=== PATIENT | male | born 1945 | race Caucasian/White ===

== ENCOUNTER → 2023-11-05 10:32 | Outpatient (REF) | payer MEDICARE, OTHER, SELFPAY ==
[2023-11-05 12:02] LABS: Blood Urea Nitrogen 18 mg/dl (9-20); Calcium 9.4 mg/dl (8.4-10.2); Carbon Dioxide 30 mmol/L (22-30); Chloride 99 mmol/L (98-107); Glucose 94 mg/dl (70-99); Sodium 137 mmol/L (135-145); eGFR > 60.00
== END ==
LOC: REG 10:32
PROVIDERS: ATTENDING PHYSICIAN Internal Medicine Interventional Cardiology; FAMILY PHYSICIAN Family Medicine
DX: I48.91 Unspecified atrial fibrillation (principal); E66.01 Morbid (severe) obesity due to excess calories; G89.29 Other chronic pain
CPT/HCPCS: 36415; 80048; 83735

== ENCOUNTER → 2023-11-06 08:02 | Outpatient (REF) | payer MEDICARE, OTHER, SELFPAY | LOC: DHCBC/DCA 08:02 | PROVIDERS: ATTENDING PHYSICIAN Internal Medicine Interventional Cardiology; FAMILY PHYSICIAN Family Medicine | DX: I48.91 Unspecified atrial fibrillation (principal); R94.31 Abnormal electrocardiogram [ECG] [EKG] | CPT/HCPCS: 78452; 93017; A9500; J2785 ==

== ENCOUNTER → 2024-02-09 07:50 | Outpatient (REF) | payer MEDICARE, OTHER, SELFPAY | LOC: MRI 07:50 | PROVIDERS: ATTENDING PHYSICIAN Orthopaedic Surgery; FAMILY PHYSICIAN Family Medicine | DX: M25.561 Pain in right knee (principal) | CPT/HCPCS: 73721 ==

== ENCOUNTER → 2024-04-20 12:19 | Outpatient (REF) | payer MEDICARE, OTHER, SELFPAY | LOC: RCS 12:19 | PROVIDERS: ATTENDING PHYSICIAN Internal Medicine Interventional Cardiology; FAMILY PHYSICIAN Family Medicine | DX: Z01.818 Encounter for other preprocedural examination (principal); I42.8 Other cardiomyopathies; I35.0 Nonrheumatic aortic (valve) stenosis | CPT/HCPCS: 93306; Q9950 ==

== ENCOUNTER 2024-04-29 06:13 | Inpatient (IN) | payer MEDICARE, OTHER, SELFPAY ==
--- NOTE | 2024-03-25 10:46 | CM ---
Patient is scheduled for an elective R TKR on 04/29/24. Spoke with patient prior to surgery. Patient had a R THR at in August 2023. Reintroduced role of Orthopedic Navigator. Patient reports that he lives with his in a two story home. There
are three steps to enter and a flight of steps to the second floor. He currently functions independently. He uses a cane on uneven surfaces. He also has a rolling walker, raised toilet seat and hip kit. He has never had VN services. PCP is Dr. Hussein
Kishore.
Discussed orthopedic program and post surgical plans. Reviewed anticipated length of stay and that goal is for him to return home at discharge. Also reviewed outpatient PT. Patient is in agreement with tentative plan and will go directly to
outpatient PT at [facility]. He will have support from his when he goes home.
Patient will complete online education.
Plan: Orthopedic Navigator will remain available to assist with the care of patient and will reassess discharge needs after surgery.
[2024-04-06 12:11] VITALS: BMI 41.7
[2024-04-06 14:24] LABS: Hematocrit 45.2 % (39.0-52.0); Hemoglobin 15.8 g/dL (13.0-18.0); Mean Corpuscular Hgb 32.2 pg (27.0-31.0); Mean Corpuscular Volume 92.2 fL (80.0-94.0); Mean Platelet Volume 10.5 fL (7.4-10.4); Platelet Count 168 10^3/uL (130-400); Red Cell Dist. Width 12.2 % (11.5-14.5); White Blood Cell Count 7.2 10^3/uL (4.8-10.8)
[2024-04-06 14:49] LABS: ALT (SGPT) 19 U/L (0-50); AST (SGOT) 26 U/L (17-59); Albumin 4.6 g/dl (3.5-5.0); Alkaline Phosphatase 70 U/L (38-126); Blood Urea Nitrogen 17 mg/dl (9-20); Calcium 9.2 mg/dl (8.4-10.2); Carbon Dioxide 31 mmol/L (22-30); Chloride 100 mmol/L (98-107); Estimated Creatinine Clearance 83 ml/min; Glucose 87 mg/dl (70-99); Potassium 4.2 mmol/L (3.5-5.1); Sodium 139 mmol/L (135-145); Total Protein 6.6 g/dl (6.3-8.2); eGFR > 60.00
[2024-04-07 08:46] LABS: Glycohemoglobin (HgbA1c) 5.3 % (4.0-5.6)
[2024-04-29] VITALS (10 sets, daily range): BP systolic 112–173; BP diastolic 49–103; PULSE 76; O2SAT 95; BMI 41.7
[2024-04-29] MEDS: NORMOSOL-R 1000 IV ×2 (06:40→09:38)
[2024-04-29] MEDS: TYLENOL 650 MG PO ×4 (06:54→21:08)
[2024-04-29] MEDS: CELEBREX 200 MG PO (06:54)
--- NOTE | 2024-04-29 07:52 | W.DS.TRANS ---
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
-
Discharge Instructions:
Discharge Diagnosis/Procedures R RODDY Barrett 04/29/24
Diet As tolerated
Activity With Walker
Driving Restrictions No driving
Bathing Restrictions OK to Shower
Other Services PT
Instructions:
Stand-Alone Forms:
Changes to Home Medications: Yes
Discharge Medications:
DC Medications w/original date entered in [facility]
atorvastatin 40 mg tablet (Lipitor) 40 mg PO DAILY High Cholesterol 05/11/21
tamsulosin 0.4 mg capsule (Flomax) 0.4 mg PO DAILY Urinary Issue 05/11/21
melatonin 10 mg tablet 10 mg PO HS PRN Insomnia 07/15/23
metoprolol succinate 25 mg tablet,extended release 24 hr (Toprol XL) 25 mg PO DAILY Heart Failure 07/22/23
losartan 50 mg tablet 50 mg PO HS 04/20/24
Saccharomyces boulardii 250 mg capsule (Florastor) 250 mg PO BID #1 cap 04/29/24
acetaminophen 500 mg tablet 1,000 mg (2 x 500 mg) PO QID pain #60 tabs 04/29/24
apixaban 5 mg tablet (Eliquis) 2.5 mg (1/2 x 5 mg) PO BID Blood clot prevention/tx/afib #60 tabs 04/29/24
cefadroxil 500 mg capsule 500 mg PO BID infection prevention #14 caps 04/29/24
dexamethasone 4 mg tablet 4 mg PO BID inflammation #6 tabs 04/29/24
docusate sodium 100 mg capsule (Colace) 100 mg PO BID stool softner #1 cap 04/29/24
famotidine 20 mg tablet 20 mg PO HS GI prophylaxis #30 tabs 04/29/24
furosemide 40 mg tablet 40 mg PO DAILY 04/29/24
gabapentin 300 mg capsule 300 mg PO HS sleep/pain #10 caps 04/29/24
magnesium hydroxide 400 mg/5 mL oral suspension (Milk of Magnesia) 30 ml PO HS PRN Constipation #1 mL 04/29/24
mupirocin 2 % topical ointment applic topical BID 04/29/24
ondansetron 4 mg disintegrating tablet 4 mg PO Q6H PRN n/v #20 tabs 04/29/24
oxycodone 5 mg tablet 5 mg PO Q6H PRN 1 tab moderate pain, 2 tabs severe pain #30 tabs 04/29/24
sennosides 8.6 mg tablet (Senokot) 17.2 mg (2 x 8.6 mg) PO BID laxative #2 tabs 04/29/24
Home Medication Changes
apixaban 5 mg tablet (Eliquis) 2.5 mg (1/2 x 5 mg) PO BID Blood clot prevention/tx/afib #60 tabs 04/29/24
cefadroxil 500 mg capsule 500 mg PO BID infection prevention #14 caps 04/29/24
dexamethasone 4 mg tablet 4 mg PO BID inflammation #6 tabs 04/29/24
famotidine 20 mg tablet 20 mg PO HS GI prophylaxis #30 tabs 04/29/24
gabapentin 300 mg capsule 300 mg PO HS sleep/pain #10 caps 04/29/24
magnesium hydroxide 400 mg/5 mL oral suspension (Milk of Magnesia) 30 ml PO HS PRN Constipation #1 mL 04/29/24
mupirocin 2 % topical ointment applic topical BID 04/29/24
ondansetron 4 mg disintegrating tablet 4 mg PO Q6H PRN n/v #20 tabs 04/29/24
oxycodone 5 mg tablet 5 mg PO Q6H PRN 1 tab moderate pain, 2 tabs severe pain #30 tabs 04/29/24
Pending Results: No
[2024-04-29] MEDS: ROXICODONE 5 MG PO ×2 (09:40→21:24)
--- NOTE | 2024-04-29 10:15 | SUR.OPER ---
Pt received from the PACU via bed. Transport was w/o incident. pt is AAOx3, HRR, w/ murmur, in the 50's. Lungs are clear, pt denies nausea and pain at this time. VSS, Bp high at 173/75 after settling into new room, will recheck and treat as
ordered/needed. Right knee with primaseal dressing c/d/i, no drainage noted. Pt instructed on plan of care. Pt verbalized understanding of instructions. Call dietz is within reach.
[2024-04-29] MEDS: FLOMAX 0.4 MG PO (11:15)
[2024-04-29] MEDS: TYLENOL PO (11:19)
[2024-04-29] MEDS: TOPROL XL 25 MG PO (11:20)
[2024-04-29] MEDS: ZOFRAN 4 MG IV (14:28)
[2024-04-29] MEDS: CYKLOKAPRON 1300 MG PO (15:37)
[2024-04-29] MEDS: ANCEF 5 IV (15:38)
[2024-04-29] MEDS: LIPITOR 40 MG PO (18:37)
[2024-04-29] MEDS: ELIQUIS 2.5 MG PO (21:07)
[2024-04-29] MEDS: SENOKOT 17.2 MG PO (21:07)
[2024-04-29] MEDS: DECADRON 4 MG PO (21:07)
[2024-04-29] MEDS: COLACE 100 MG PO (21:08)
[2024-04-29] MEDS: BACTROBAN 2% OINTMENT 1 APPLIC NASAL (21:08)
[2024-04-29] MEDS: NEURONTIN 300 MG PO (21:22)
[2024-04-30] MEDS: ANCEF 5 IV (00:30)
[2024-04-30] MEDS: TYLENOL 650 MG PO ×3 (00:30→08:13)
[2024-04-30 03:16] VITALS: BP 117/70
[2024-04-30 07:00] VITALS: BP 110/64
[2024-04-30] MEDS: BACTROBAN 2% OINTMENT 1 APPLIC NASAL (08:10)
[2024-04-30] MEDS: COLACE 100 MG PO (08:11)
[2024-04-30] MEDS: DECADRON 4 MG PO (08:11)
[2024-04-30] MEDS: FLOMAX 0.4 MG PO (08:12)
[2024-04-30] MEDS: ELIQUIS 2.5 MG PO (08:12)
[2024-04-30] MEDS: SENOKOT 17.2 MG PO (08:12)
[2024-04-30] MEDS: TOPROL XL 25 MG PO (08:13)
--- NOTE | 2024-04-30 08:17 | CM ---
Reviewed chart and held rounds with PT, OT and nursing. Patient admitted as planned for elective L THR. Met with patient at bedside. Confirmed information previously obtained for assessment. Also discussed discharge plans. The plan is for patient to
return home at discharge. He will have support from his when he goes home. Patient will go directly to outpatient PT and will go to [facility]. He has an appointment scheduled for Saturday, 05/01.
Patient has all needed DME.
He will use [facility] pharmacy if additional discharge prescriptions are needed.
Discharge plans were reviewed with patient's on 04/29.
[2024-04-30] MEDS: ROXICODONE 10 MG PO (08:18)
--- NOTE | 2024-04-30 08:20 | CM ---
Reviewed chart and held rounds with PT, OT and nursing. Patient admitted as planned for elective R TKR. Met with patient at bedside. Confirmed information previously obtained for assessment. Also discussed discharge plans. The plan is for patient to
return home at discharge. He will have support from his when he goes home. Patient will go directly to outpatient PT and will go to [facility]. He has an appointment scheduled for Saturday, 05/01.
Patient has all needed DME.
He will use [facility] pharmacy if additional discharge prescriptions are needed.
Discharge plans were reviewed with patient's on 04/29.
[2024-04-30 11:00] VITALS: BP 124/66
--- NOTE | 2024-04-30 11:42 | W.PN.ORTHO ---
Today's Communication / Plan
-
d/c
Assessment
.
Distal Motor Intact: Yes
Dressing:
Clean, dry and intact.
Assessment:
Afib-stable on tele-continue uninterrupted BB+ Eliquis at modified dose
Incisional bleeding-s/p Tranexamic acid po-additional steri-strips applied by surgical team-light pressure dressing
Plan
.
Surgery / Date: R RODDY Barrett 04/29/24
DVT Prophylaxis: Other (Eliquis)
Activity:
Out of bed.
PT/OT
Discharge Plan: Home w/ Outpatient PT
Subjective
.
.:
Patient resting comfortably.
Vital Signs and Labs
.
Vital Signs and Labs:
Lab Results
04/06/24 12:08
04/06/24 12:08
Temp Pulse Resp BP Pulse Ox
98.1 F 58 14 124/66 93
04/30/24 11:00 04/30/24 11:00 04/30/24 11:00 04/30/24 11:00 04/30/24 11:00
Non-invasive Hgb result: 12.5
Physical Exam
-
HEENT: No pallor, cyanosis, or jaundice. Throat clear.
NECK: Supple. No JVD.
RESPIRATORY: Lungs clear to auscultation.
CVS: S1, S2 normal. RRR.� No murmur, rub or gallop.
ABDOMEN: Soft, non-tender. No distension. BS+/normal.
EXTREMITIES: strength equal, no calf pain with palpation
NEONATAL SURGEON: AOx3. No focal deficits. sugar house supervisor grossly intact
[2024-04-30 13:18] VITALS: BP 147/73; PULSE 60; O2SAT 96
[2024-04-30 13:38] VITALS: BP 144/66; PULSE 60; O2SAT 96
[2024-04-30] MEDS: TYLENOL PO (14:27)
== END 2024-04-30 13:50 | disposition home or self-care (01) | DRG 470 ==
LOC: 2 SOUTH 06:13
PROVIDERS: ADMITTING PHYSICIAN Orthopaedic Surgery; FAMILY PHYSICIAN Family Medicine
PROC: 0SRC0J9 Replacement of Right Knee Joint with Synthetic Substitute, Cemented, Open Approach (ICD-10-PCS; 2024-04-29)
DX: M17.11 Unilateral primary osteoarthritis, right knee (principal); I42.8 Other cardiomyopathies; Z68.41 Body mass index [BMI] 40.0-44.9, adult; I48.0 Paroxysmal atrial fibrillation; I35.0 Nonrheumatic aortic (valve) stenosis; G47.33 Obstructive sleep apnea (adult) (pediatric); I10 Essential (primary) hypertension; E78.00 Pure hypercholesterolemia, unspecified; E66.01 Morbid (severe) obesity due to excess calories; Z79.01 Long term (current) use of anticoagulants; Z79.899 Other long term (current) drug therapy; Z96.641 Presence of right artificial hip joint
CPT/HCPCS: 36415; 73560; 80053; 83036; 85027; 87070; 97110; 97116; 97163; 97166; 97530; C1713; C1776

== ENCOUNTER → 2024-11-02 10:51 | Outpatient (REF) | payer MEDICARE, OTHER, SELFPAY | LOC: HWRAD 10:51 | PROVIDERS: ATTENDING PHYSICIAN Family Medicine | DX: M79.651 Pain in right thigh (principal) | CPT/HCPCS: 73552 ==

== ENCOUNTER → 2024-12-17 11:44 | Outpatient (REF) | payer MEDICARE, OTHER, SELFPAY | LOC: PAVMRI 11:44 | PROVIDERS: ATTENDING PHYSICIAN Family Medicine | DX: M79.651 Pain in right thigh (principal) | CPT/HCPCS: 73720; A9575 ==

== ENCOUNTER → 2025-08-12 13:29 | Outpatient (REF) | payer MEDICARE, OTHER, SELFPAY ==
--- NOTE | 2025-08-12 14:57 | CARDSERVLU ---
Echocardiogram with Lumason completed after protocol screening completed. Allergies verified.
Patent IV site: _Right forearm 22G PC inserted by IV team____
IV site flushed with 0.9% NaCl pre and post administration.
Diluted bolus method utilized to enhance visualization of ventricular arriaga.
Total volume given: __5__ mL
Patient tolerated all procedures well without complications.
Procedure completed by Echo team, Lumason given by Kasandra Elliott Wood Heel Flap Rubber . Pt offers no complaints.
== END ==
LOC: RCS 13:29
PROVIDERS: ATTENDING PHYSICIAN Internal Medicine Interventional Cardiology; FAMILY PHYSICIAN Family Medicine
DX: I48.0 Paroxysmal atrial fibrillation (principal); I35.0 Nonrheumatic aortic (valve) stenosis
CPT/HCPCS: 93306; Q9950

== ENCOUNTER → 2025-08-18 10:14 | Outpatient (REF) | payer MEDICARE, OTHER, SELFPAY ==
[2025-08-18 11:26] LABS: Hematocrit 51.3 % (39.0-52.0); Hemoglobin 17.8 g/dL (13.0-18.0); Mean Corp Hgb Conc. 34.7 g/dL (33.0-37.0); Mean Corpuscular Volume 93.6 fL (80.0-94.0); Nucleated Red Blood Cells % 0 % (-); Platelet Count 198 10^3/uL (130-400); Red Cell Dist. Width 13.2 % (11.5-14.5)
[2025-08-18 12:00] LABS: Glycohemoglobin (HgbA1c) 5.7 % (4.0-5.9)
[2025-08-18 12:51] LABS: ALT (SGPT) 20 U/L (0-50); AST (SGOT) 21 U/L (17-59); Albumin 4.7 g/dl (3.5-5.0); Alkaline Phosphatase 64 U/L (38-126); Blood Urea Nitrogen 14 mg/dl (9-20); Calcium 9.6 mg/dl (8.4-10.2); Carbon Dioxide 34 mmol/L (22-30); Chloride 100 mmol/L (98-107); Glucose 92 mg/dl (70-99); HDL Cholesterol 55 mg/dl; LDL Cholesterol, Calculated 142 mg/dl; Potassium 4.8 mmol/L (3.5-5.1); Sodium 140 mmol/L (135-145); Total Protein 7.2 g/dl (6.3-8.2); Very Low Density Lipoprotein 15 mg/dl (0-30); eGFR > 60.00
== END ==
LOC: REG 10:14
PROVIDERS: ATTENDING PHYSICIAN Internal Medicine Interventional Cardiology; FAMILY PHYSICIAN Family Medicine
DX: I48.0 Paroxysmal atrial fibrillation (principal); I35.0 Nonrheumatic aortic (valve) stenosis; I10 Essential (primary) hypertension; E78.2 Mixed hyperlipidemia; G47.33 Obstructive sleep apnea (adult) (pediatric)
CPT/HCPCS: 36415; 80053; 80061; 83036; 84443; 85025

== ENCOUNTER 2025-09-06 07:24 | Day surgery (SDC) | payer MEDICARE, OTHER, SELFPAY ==
[2025-09-06] VITALS (12 sets, daily range): BP systolic 112–173; BP diastolic 55–145; BMI 45.6
--- NOTE | 2025-09-06 07:56 | ITS.CL.CATH ---
Market Analyst - Catheterization
Cardiac Catheterization
Procedure Report:
LEFT AND RIGHT HEART CATHETERIZATION
Date of Procedure: September 06, 2025
Referring: Washington Walters.
PROCEDURES:
1. Left heart catheterization, coronary angiogram.
2. Moderate sedation.
3. Right heart catheterization.
INDICATION: Concern for severe low-flow low gradient aortic stenosis and recently reduced LV function with LVEF of 40-45
ACCESS: Right radial artery, 6Fr. sheath, under US guidance.
Right brachial vein, 6 Georgian sheath, under ultrasound.
HEMODYNAMICS : (mmHg)
RA (m) : 14
RV (s/d,m) : 53/9, 16
PA (s/d, m) : 56/26, 30
PCWP (m) : 33
PA saturation: 71.5%on room air
AO saturation: 95.3% on room air
RA saturation: 69.1% on room air
Cardiac Output : 5.00 L/min
Cardiac Index : 2.11 L/min/m-2
Systemic vascular resistance: 1311 dsc^(-5)
Pulmonary vascular resistance: 2.11 bass unit
AO (s/d) : 141/73
LVEDP : 25
Mean Aortic gradient: 35mmHg, SONU 0.93cm2
CORONARY FINDINGS
Dominance: Right
Left Main Trunk (LMT): The left main gives off the LAD and LCx and is free of angiographic disease.
Left Anterior Descending Artery (LAD): The LAD is a large caliber vessel a small to medium caliber first major diagonal and a large caliber second diagonal. The ostial to proximal D1 has eccentric 70-80% stenosis. The proximal D2 has 50% stenosis.
Left Circumflex Artery (LCx): The large LCx gives off a high rising moderate caliber first obtuse marginal. The ostial LCx has an eccentric 70% stenosis.
Right Coronary Artery (RCA): Very large caliber dominant vessel that gives rise to the posterior descending artery (RPDA) and postero-lateral ventricular (RPLV) branches distally. Ostial to proximal RCA has heavily calcified 70 to 80% stenosis.
The remainder of the vessel is very ectatic/aneurysmal with moderate tortuosity. Ostial to proximal RPDA has 40 to 50% stenosis.
HEMODYNAMIC ASSESSMENT OF THE MID LAD WITH A VOLCANO OMNI WIRE: The origin of the left coronary artery was cannulated with a 6 Fr EBU 3.5 guide catheter. Intravenous heparin was administered and the ACT was followed during the procedure. Two
hundred micrograms of intracoronary nitroglycerin was given through the guide catheter. A [place] Omni wire was advanced to the guide catheter tip and normalized just outside the guide catheter. The Omni wire was then carefully manipulated across
the stenosis in the mid LAD with the iFR above the ischemic threshold serially measuring 0.92, 0.92, 0.93. The Omni wire was then pulled back to the guide catheter where the Pd/Pa measured 1.0 confirming no baseline drift in pressure readings. We
attempted RCA IFR using a 6 Georgian JR4 guide however despite multiple attempts we continue to have significant drift in the Omni wire despite normalizing multiple times and therefore we aborted and could not rely on any IFR information.
Angiographically it appears to be a heavily calcified obstructive lesion in the ostial to proximal RCA
SEDATION: 47 minutes of procedural sedation was utilized. IV Midazolam and IV Fentanyl were administered. An independent medical artist was present to assist with and help manage the patient's level of consciousness and physiologic status.
RADIATION SUMMARY: Fluoro Time (min): 13.1, Dose (mGy): 702, DAP (Gy.cm2) : 55.7
Closure Device: There were no immediate intra-procedural complications. The sheath was pulled in the slab off mill tender and a vascular-band applied to the right wrist for radial artery hemostasis using the patent hemostasis technique.
CONCLUSIONS
1. Severe ostial to proximal calcified RCA stenosis along with ostial LCx, and D1 disease.
2. Severely calcified aortic valve with invasive mean transaortic gradient of 35 mmHg, aortic valve area of 0.93 cm� consistent with low-flow low gradient severe aortic stenosis.
3. Significantly elevated right and left-sided filling pressures with borderline cardiac index.
RECOMMENDATIONS
1. Wean radial band per protocol. Monitor right hand perfusion and for bleeding from the radial site following removal of the vascular-band following trans-radial access.
2. Continue aggressive medical therapy and risk factor modification for secondary CAD prevention. Optimizing goal-directed medical therapy for new cardiomyopathy.
3. Hydrate with normal saline to mitigate the risk of contrast-induced acute kidney injury.
4. Pursue CTA of chest, abdomen and pelvis with plan to discuss at structural meeting afterwards for consideration of SAVR and CABG with grafts to OM1, RCA and if possible D1 versus TAVR and possible PCI of ostial to proximal RCA.
Greta Velasquez MD, FACC, [facility] [place]
[2025-09-06] MEDS: NSS 396 ML IV (08:18)
[2025-09-06] MEDS: LOW STRENGTH ASPIRIN 81 MG PO (08:22)
--- NOTE | 2025-09-06 12:30 | PTCARENOTE ---
Received patient post R/C. Dual preventive medicine officer of access points completed with Lei Elliott RN. Radial band in place on right wrist. 6 Fr right brachial vein sheath remains in place. Pt is alert and oriented x4. Will remove brachial sheath once patient
is settled. Call dietz within reach. Pt secure on the stretcher; both side rails up.
[2025-09-06 12:55] LABS: ACT-LR - POC 385 Seconds (116-155)
[2025-09-06] MEDS: NSS 1000 IV (13:15)
--- NOTE | 2025-09-06 15:00 | PTCARENOTE ---
patient states [facility] having trouble filling Farxgia and Atorvastatin software test and validation engineer made aware, instructed [facility] to call [facility] in am, Call Doc office if unable to fill scripts in am
--- NOTE | 2025-09-06 15:06 | CONSULT.STRU ---
Consultation
-
Date/Time Consultation Requested: 09/06/2025 1145
Date/Time Consultation Performed: 09/06/2025 1300
Requesting Provider: Dr. Greta Velasquez
Performing Provider: CARINA Velasquez
Reason for Consultation: Aortic stenosis/CAD
Patient History
Physicians
Family Physician: Keenan Novak
Outpatient Legislative Assistant: Greta Velasquez
Primary Legislative Assistant: Greta Velasquez
History of Present Illness
Mr Sena is a 80-year-old gentleman with past medical history of obesity, obstructive sleep apnea(CPAP), hyperlipidemia, hypertension, Osteoarthritis, persistent atrial fibrillation on full anticoagulation with Eliquis.He continues to be limited
because of his orthopedic issues but has noted ongoing MCCONNELL and fatigue. His feels it has become more obvious over the last 6 months. He denies chest pain at rest or with exertion. He denies palpitations, PND, orthopnea. He has IZA and is
compliant with his CPAP. Mild BLE edema, left worse than right with chronic venous stasis changes. No syncope. No LH/dizziness. His echocardiogram on 08/12/2025 was notable for decreased EF of 45%, severe low flow, low gradient with PG/M/35,
SONU 0.86, mild AI, MR, TR. Cardiac cath today with Severe ostial to proximal calcified RCA stenosis along with ostial LCx, and D1 disease. Severely calcified aortic valve with invasive mean transaortic gradient of 35 mmHg, aortic valve area of 0.93
cm� consistent with low-flow low gradient severe aortic stenosis. Significantly elevated right and left-sided filling pressures with borderline cardiac index.
Reviewed with the patient and his the treatment options for his CAD and severe including with TAVR/PCI and CABG/SAVR. Provided with prescription for follow up BMP next week and CT TAVR. Explained the evaluation process including Structural
Heart team discussion prior to making final recommendation for treatment. Allowed for and answered questions.
Past Medical History
Past Medical History: Atrial Fib (persistant, Eliquis), CAD, MCCONNELL, HTN, Hypercholesterolemia, IZA (CPAP), Valvular Disease (severe low flow low gradient , mild AI, mild MR, mild TR) and Other (Chronic Venous Insufficiency)
Past Surgical History
Past Surgical History: Orthopedic (Right ANDRES, Right TKA, Bilateral should replacements, back surgery x2)
Dental History
Dentures
Family History
Mother: at Age
Father: at Age
Social History
Alcohol: Occasional
Drug: None
Tobacco: Non-Smoker
Personal:
Living: With Spouse
Employment: Retired
Allergies
Allergy/AdvReac Type Severity Reaction Status Date / Time
pollen extracts Allergy Seasonal Verified 09/06/25 07:45
Allergy
Home Medications
�Medication �Instructions �Recorded �Confirmed �Type
tamsulosin 0.4 mg capsule (Flomax) 0.4 mg PO DAILY Urinary Issue 05/11/21 09/06/25 History
melatonin 10 mg tablet 10 mg PO HS PRN Insomnia 07/15/23 09/06/25 History
metoprolol succinate 25 mg 25 mg PO DAILY Heart Failure 07/22/23 09/06/25 History
tablet,extended release 24 hr
(Toprol XL)
acetaminophen 500 mg tablet 1,000 mg (2 x 500 mg) PO QID pain 04/29/24 09/06/25 Rx
#60 tabs
gabapentin 300 mg capsule 300 mg PO HS sleep/pain #10 caps 04/29/24 09/06/25 Rx
apixaban 5 mg tablet (Eliquis) 5 mg PO BID Blood clot 09/06/25 09/06/25 History
prevention/tx/afib
atorvastatin 80 mg tablet (Lipitor) 80 mg PO DAILY #30 tabs 09/06/25 Rx
dapagliflozin propanediol 10 mg 10 mg PO DAILY #30 tabs 09/06/25 Rx
tablet (Farxiga)
furosemide 40 mg tablet 40 mg PO BID Fluid 09/06/25 09/06/25 Rx
Retention/Swelling #60 tabs
losartan 25 mg tablet 25 mg PO DAILY #30 tabs 09/06/25 Rx
STS%
STS %: AVR: 2.75%, AVR/CAB.24%
Review of Systems
-
History Source: Patient and Family
General: Reports Fatigue
HEENT: Reports No Symptoms
Respiratory: Reports MCCONNELL and Other (IZA)
Cardiac: Reports Edema; Denies Chest Pain, Palpitations, Nausea or Vomiting
Abdomen/GI: Reports Reflux (occasional, relieved with TUMS); Denies Nausea, Vomiting, Diarrhea or Constipation
: Reports No Symptoms
Musculoskeletal: Reports No Symptoms
Skin: Reports No Symptoms
Neurological: Reports No Symptoms; Denies CVA, TIA or Syncope
Vascular: Reports Other (CVI)
Physical Exam
Vital Signs
Temp 97.1 F 09/06/25 08:10
Pulse 57 09/06/25 14:55
Resp Rate 20 09/06/25 14:55
Blood pressure 122/64 09/06/25 14:55
Blood pressure extremity used: Right upper arm 09/06/25 08:10
Position: Lying 09/06/25 08:10
MAP (cuff-Michaelle Monitor) 78 09/06/25 14:55
SaO2 96 09/06/25 14:55
Oxygen Mode of Delivery Room air 09/06/25 14:20
Can the patient verbally communicate their pain? Yes 09/06/25 14:20
Actual Weight 131.9 kg 09/06/25 07:44
Body Mass Index (BMI) 45.6 09/06/25 07:44
Labs
08/18/2025
H/H: 17.8/51.3
BUN/Creat: 14/0.9
GFR >60
Diagnostic Studies
08/12/2025 Echocardiogram:
SUMMARY
1. Left ventricular hypertrophy. Mildly reduced left ventricular systolic function with estimated LVEF of 45% by visual estimation. Underlying atrial fibrillation and [id number] variability make this assessment somewhat challenging. Diastolic
function is indeterminate.
2. Mildly dilated right ventricle with low normal RV systolic function.
3. Trileaflet calcified aortic valve with reduced leaflet excursion. Severe low-flow low gradient aortic stenosis with peak and mean transaortic gradient of 54 and 35 mmHg. Dimensionless index of 0.2. Stroke-volume index of 32ml/m2. Mild aortic
regurgitation.
4. Trivial pericardial effusion.
5. Compared to prior echocardiogram from April 20, 2024, aortic stenosis is now severe with mildly reduced LV systolic function.

Transthoracic Echo procedure
A complete Transthoracic Echocardiogram was performed utilizing Two-Dimensional evaluation with color flow and spectral Doppler analysis.
PHYSICIAN INTERPRETATION
Left Ventricle:
Lumason intravenous contrast was given for enhanced left ventricular opacification and improved delineation of the left ventricular endocardial borders. There is mild concentric left ventricular hypertrophy. Diastolic function indeterminate.
Right Ventricle:
The right ventricular cavity size cavity is mildly dilated. The right ventricular systolic function is mildly decreased.
Left Atrium:
Indexed left atrial volume is severely abnormal (>48 ml/m2).
Right Atrium:
Right atrial size is normal. The inferior vena cava appears normal.
Interatrial Septum:
The interatrial septum appears normal and intact, with no evidence of interatrial shunting.
Aortic Valve:
Trileaflet calcified aortic valve with reduced leaflet excursion. Severe low-flow low gradient aortic stenosis with peak and mean transaortic gradient of 54 and 35 mmHg. Dimensionless index of 0.2. Stroke-volume index of 32ml/m2. Mild aortic
regurgitation.
Mitral Valve:
Mitral valve opens normally. There is mild thickening of the mitral valve. mild mitral annular calcification. mild mitral valve regurgitation.
Tricuspid Valve:
Tricuspid valve opens normally. Mild tricuspid regurgitation. Estimated pulmonary artery pressure of 40 mmHg assuming a right atrial pressure of 3 mmHg.
Pulmonic Valve:
Pulmonic valve opens normally.
Aorta:
The aortic annulus is mildly dilated. SOV measure 3.8cm.
Pericardium:
Trivial pericardial effusion is present.
09/06/2025 Cardiac Cath:
HEMODYNAMICS : (mmHg)
RA (m) : 14
RV (s/d,m) : 53/9, 16
PA (s/d, m) : 56/26, 30
PCWP (m) : 33
PA saturation: 71.5%on room air
AO saturation: 95.3% on room air
RA saturation: 69.1% on room air
Cardiac Output : 5.00 L/min
Cardiac Index : 2.11 L/min/m-2
Systemic vascular resistance: 1311 dsc^(-5)
Pulmonary vascular resistance: 2.11 bass unit
AO (s/d) : 141/73
LVEDP : 25
Mean Aortic gradient: 35mmHg, SONU 0.93cm2
CORONARY FINDINGS
Dominance: Right
Left Main Trunk (LMT): The left main gives off the LAD and LCx and is free of angiographic disease.
Left Anterior Descending Artery (LAD): The LAD is a large caliber vessel a small to medium caliber first major diagonal and a large caliber second diagonal. The ostial to proximal D1 has eccentric 70-80% stenosis. The proximal D2 has 50% stenosis.
Left Circumflex Artery (LCx): The large LCx gives off a high rising moderate caliber first obtuse marginal. The ostial LCx has an eccentric 70% stenosis.
Right Coronary Artery (RCA): Very large caliber dominant vessel that gives rise to the posterior descending artery (RPDA) and postero-lateral ventricular (RPLV) branches distally. Ostial to proximal RCA has heavily calcified 70 to 80% stenosis.
The remainder of the vessel is very ectatic/aneurysmal with moderate tortuosity. Ostial to proximal RPDA has 40 to 50% stenosis.
HEMODYNAMIC ASSESSMENT OF THE MID LAD WITH A VOLCANO OMNI WIRE: The origin of the left coronary artery was cannulated with a 6 Fr EBU 3.5 guide catheter. Intravenous heparin was administered and the ACT was followed during the procedure. Two
hundred micrograms of intracoronary nitroglycerin was given through the guide catheter. A Path101 Omni wire was advanced to the guide catheter tip and normalized just outside the guide catheter. The Omni wire was then carefully manipulated across
the stenosis in the mid LAD with the iFR above the ischemic threshold serially measuring 0.92, 0.92, 0.93. The Omni wire was then pulled back to the guide catheter where the Pd/Pa measured 1.0 confirming no baseline drift in pressure readings. We
attempted RCA IFR using a 6 Vietnamese JR4 guide however despite multiple attempts we continue to have significant drift in the Omni wire despite normalizing multiple times and therefore we aborted and could not rely on any IFR information.
Angiographically it appears to be a heavily calcified obstructive lesion in the ostial to proximal RCA
CONCLUSIONS
1. Severe ostial to proximal calcified RCA stenosis along with ostial LCx, and D1 disease.
2. Severely calcified aortic valve with invasive mean transaortic gradient of 35 mmHg, aortic valve area of 0.93 cm� consistent with low-flow low gradient severe aortic stenosis.
3. Significantly elevated right and left-sided filling pressures with borderline cardiac index.
RECOMMENDATIONS
1. Wean radial band per protocol. Monitor right hand perfusion and for bleeding from the radial site following removal of the vascular-band following trans-radial access.
2. Continue aggressive medical therapy and risk factor modification for secondary CAD prevention. Optimizing goal-directed medical therapy for new cardiomyopathy.
3. Hydrate with normal saline to mitigate the risk of contrast-induced acute kidney injury.
4. Pursue CTA of chest, abdomen and pelvis with plan to discuss at structural meeting afterwards for consideration of SAVR and CABG with grafts to OM1, RCA and if possible D1 versus TAVR and possible PCI of ostial to proximal RCA.
Exam
General: Well Developed, No Apparent Distress, Comfortable and Other (obese)
HEENT: Normocephalic and Atraumatic
Neck: Trachea Midline
Respiratory: Clear; Negative Wheezes, Crackles or Rhonchi
Cardiac: S1/S2, Irregular Rhythm and Murmur (Grade II/)
GI: Soft, Non Tender, Non Distended and Normal Bowel Sounds
Rectal: Deferred by Provider
Skin: Warm, Dry and Other (chronic venous stasis changes bilateral LE)
Neuro: AO x 3 and Nonfocal/Grossly Intact
Extremities: Lower Level Edema
Psych: Calm
Assessment / Plan
-
Procedure Type:�Isolated AVR
Perioperative Outcome Estimate %
Operative Mortality 2.75%
Morbidity & Mortality 15.2%
Stroke 0.819%
Renal Failure 3.23%
Reoperation 4.51%
Prolonged Ventilation 10.5%
Deep Sternal Wound Infection 0.227%
Long Hospital Stay (>14 days) 6.01%
Short Hospital Stay (<6 days)* 25.3%
Procedure Type:�CABG + AVR
Perioperative Outcome Estimate %
Operative Mortality 7.24%
Morbidity & Mortality 22.7%
Stroke 1.6%
Renal Failure 5.63%
Reoperation 5.59%
Prolonged Ventilation 17.5%
Deep Sternal Wound Infection 0.413%
Long Hospital Stay (>14 days) 13.7%
Short Hospital Stay (<6 days)* 10.4%
Assessment:
Severe low flow, low gradient with multivessel CAD
Plan:
-Continue evaluation as outpatient
-BMP on 09/13/2025 ()
-CT TAVR scan 09/16/2025
-CT surgery consult with Dr. Doss 09/27/2025
-Structural heart team discussion PCI/TAVR vs CABG/SAVR
-Eliquis for a-fib, will need to discuss timing to hold prior to procedure. Will need ASA while off Eliquis if having TAVR.
-Full dentures, no need for dental clearance
-Medication adjustments per cardiology for CAD and elevated filling pressures
Data Reviewed
-
EKG: Report Reviewed by me
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
Echo: Report Reviewed by me, Discussed with Patient and Discussed with Family
Labs: Labs Reviewed by me
Old Records: Reviewed (cardiology office notes)
Total Time Spent with Patient (in minutes): 45
== END 2025-09-06 16:22 | disposition home or self-care (01) ==
LOC: CATH 07:24
PROVIDERS: ATTENDING PHYSICIAN Internal Medicine Interventional Cardiology; FAMILY PHYSICIAN Family Medicine
DX: I25.10 Atherosclerotic heart disease of native coronary artery without angina pectoris (principal); E66.9 Obesity, unspecified; E78.00 Pure hypercholesterolemia, unspecified; G47.33 Obstructive sleep apnea (adult) (pediatric); I11.9 Hypertensive heart disease without heart failure; I48.19 Other persistent atrial fibrillation; I08.3 Combined rheumatic disorders of mitral, aortic and tricuspid valves; I87.2 Venous insufficiency (chronic) (peripheral); I87.8 Other specified disorders of veins; M19.90 Unspecified osteoarthritis, unspecified site; Z68.42 Body mass index [BMI] 45.0-49.9, adult; Z79.84 Long term (current) use of oral hypoglycemic drugs; Z79.899 Other long term (current) drug therapy; Z96.643 Presence of artificial hip joint, bilateral; Z96.653 Presence of artificial knee joint, bilateral
CPT/HCPCS: 93799; 99152; 99153; 93460; C1769; C1894; Q9967

== ENCOUNTER → 2025-09-13 10:38 | Outpatient (REF) | payer MEDICARE, OTHER, SELFPAY ==
[2025-09-13 12:10] LABS: ALT (SGPT) 23 U/L (0-50); AST (SGOT) 27 U/L (17-59); Albumin 4.4 g/dl (3.5-5.0); Alkaline Phosphatase 73 U/L (38-126); Blood Urea Nitrogen 18 mg/dl (9-20); Calcium 9.5 mg/dl (8.4-10.2); Carbon Dioxide 31 mmol/L (22-30); Chloride 99 mmol/L (98-107); Glucose 120 mg/dl (70-99); Potassium 3.8 mmol/L (3.5-5.1); Sodium 137 mmol/L (135-145); Total Protein 6.8 g/dl (6.3-8.2); eGFR > 60.00
== END ==
LOC: REG 10:38
PROVIDERS: ATTENDING PHYSICIAN Internal Medicine Interventional Cardiology; FAMILY PHYSICIAN Family Medicine
DX: I48.0 Paroxysmal atrial fibrillation (principal)
CPT/HCPCS: 36415; 80053

== ENCOUNTER → 2025-09-16 09:22 | Outpatient (REF) | payer MEDICARE, OTHER, SELFPAY | LOC: RAD 09:22 | PROVIDERS: ATTENDING PHYSICIAN Nurse Practitioner Adult Health; FAMILY PHYSICIAN Family Medicine | DX: I35.0 Nonrheumatic aortic (valve) stenosis (principal) | CPT/HCPCS: 74174; 75572; Q9967 ==